=== PATIENT | female | born 1990 | race Caucasian/White ===

== ENCOUNTER 2022-05-19 19:08 | Inpatient (IN) ==
[2022-05-19] MEDS ORDERED: OXYTOCIN 30 UNITS/500 ML BAG IV PRN ×2 (19:57→21:57)
[2022-05-19] MEDS ORDERED: PENICILLIN G POTASSIUM 6 MU in DEXTROSE 5% 250 ML IV STA (20:00)
[2022-05-19 20:19] LABS: Hematocrit (blood only) 41.1 % (34.1-44.9); Hemoglobin 14.2 g/dl (12.0-16.0); Mean Corpuscular Hemoglobin 31.4 pg (25.0-34.0); Mean Corpuscular Hgb Conc 34.5 g/dL (32.0-36.0); Mean Corpuscular Volume 90.9 fL (80.0-100.0); Mean Platelet Volume 11.8 fL (9.4-12.3); Platelet Count 169 K/uL (130-400); RDW Coefficient of Variation 12.4 % (11.5-14.5); RDW Standard Deviation 41.1 fL (36.4-46.3); Red Blood Count 4.52 M/uL (3.93-5.22); White Blood Count 10.51 K/ul (4.8-10.8)
[2022-05-19] MEDS: LACTATED RINGER'S 1,000 ML IV PRN (20:42)
--- NOTE | 2022-05-19 21:53 | History & Physical Report ---
Date of Service May 19, 2022 Assessment & Plan (1) Encounter for supervision of normal intrauterine in primigravida, antepartum: Plan: Thuy is a 32-year-old at 39 weeks 6 days gestational age with spontaneous rupture of membranes not in labor. Patient is having regular contractions but does not feel them. At time of discussion patient had been ruptured approximately 6 hours and discussed the recommendation to start oxytocin as labor has not ensued despite being ruptured for 6+ hours. Discussed risk of infection and increased risk of due to prolonged labor with expectant management. Patient was agreeable to start oxytocin. 1. Fetus: Cat 1 2. Labor: PROM. Per above 3. GBS positive: PCN 4. Vitals: Stable (2) Group beta Strep positive: Admission and Anticipated Discharge Date Admission Date: May 19, 2022 History of Present Illness Primary Care Provider: NO PCP Selene is a 32-year-old currently at 39 weeks 6 days gestational age presents with leakage of fluid. Patient was noted be grossly ruptured on exam. Patient reporting good movement. Patient denying vaginal bleeding or notable contractions. uncomplicated to date. patient reports leakage of fluid around 3:30 or 4:00 this afternoon. Allergies Allergy/AdvReac Type Severity Reaction Status Date / Time No Known Allergies Allergy Verified 05/19/22 19:30 Home Medications Medication Instructions Recorded Confirmed Type calcium carbonate 600 mg calcium 600 mg PO DAILY 10/05/21 05/19/22 History (1,500 mg) tablet prenat.vits,albaro,yod-uqfe-gplpi 1 tab PO DAILY 10/05/21 05/19/22 History pyridoxine (vitamin B6) 100 mg 100 mg PO QID 10/05/21 05/19/22 History tablet doxylamine succinate 25 mg tablet 25 mg PO HS PRN sleep 05/19/22 05/19/22 History (Unisom (doxylamine)) Patient History Medical History Benign cyst of breast Breast lump Chicken pox H/O HIDA scan Heart burn Normal endoscopy Surgical History [place] teeth extracted Family History Aunt Ovarian cancer Maternal Great Aunt Cystic fibrosis Mother Melanoma Hypertension Endometriosis Grandfather (Paternal) Diabetes Grandmother (Maternal) Twin Grandmother was a Faternal twin at Father High cholesterol Cancer Testicular Grandmother (Paternal) Lung cancer Denies family history of Breast cancer Colorectal cancer Social History (Updated 10/09/21 @ 12:31 by Lyudmila LEDESMA RN) Smoking Status: Never smoker Hx Alcohol Use: No Hx Substance Use: No Preferred Language: Puerto Rican Communication Ability: Effective Prosthetics Technician Required: No Beliefs That Will Affect Care: None marital status: marital status details: Tio Davidson (34) [phone] Current Living Situation: Spouse Current Living Situation Comment: house with current occupational status: employed 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 Other Information That Helps Us Care for You: No Feels Safe at Home: Yes Safety Concerns: Feels Safe At This Time Assistive Devices: Glasses Physical Exam Genitourinary: normal external appearance Manual OB Exam: + cervical dilation 1 cm, + cervical effacement 50%, + station high and + amniotic fluid clear OB Exam Monitor Tracing: + external FHT monitor used, + external uterine monitor used, + category I and + normal FHT variability; no early decelerations present, no late decelerations present and no variable decelerations Exam per nurse Results & Data ([facility]) Vital Signs (Past 12 Hours) Vital Signs Temp Pulse Resp BP O2 Del Method 05/19/22 19:34 36.3 C L 18 Room Air 05/19/22 21:00 18 05/19/22 21:00 36.7 C 18 05/19/22 19:22 36.3 C L 74 18 131/71 Coding Level of Care Code None Diagnoses Encounter for supervision of normal intrauterine in primigravida, antepartum Z34.00 Group beta Strep positive B95.1
[2022-05-20] MEDS: PENICILLIN G POTASSIUM 3 MU in DEXTROSE 5% 100 ML IV PRN ×3 (00:45→09:06)
[2022-05-20] MEDS ORDERED: ePHEDrine sulfate 50 MG/ML AMP ONE (07:07)
[2022-05-20] MEDS ORDERED: fentaNYL citrate 100 MCG/2 ML VIAL ONE (07:08)
[2022-05-20] MEDS ORDERED: BUPIVACAINE 0.25% 30 ML VIAL ONE (07:08)
[2022-05-20] MEDS ORDERED: LIDOCAINE 2%/EPINEPHRINE 1:200,000 20 ML SDV ONE (07:08)
[2022-05-20] MEDS ORDERED: SODIUM CHLORIDE 0.9% INJ 10 ML VIAL ONE (07:08)
[2022-05-20] MEDS ORDERED: fentaNYL 2MCG/ML ROPIVACAINE 1.25MG/ML 100 ML BAG EPI ONE (07:09)
--- NOTE | 2022-05-20 08:10 | Anesthesiology Consultation ---
Date of Service May 20, 2022 Assessment & Plan (1) Encounter for pre-operative examination: History Height/Weight Height: 5 ft 4 in Weight: 67.585 kg Allergies Allergy/AdvReac Type Severity Reaction Status Date / Time No Known Allergies Allergy Verified 05/19/22 19:30 Medications Home Medications Medication Instructions Recorded Confirmed Last Taken calcium carbonate 600 mg calcium 600 mg PO DAILY 10/05/21 05/19/22 Unknown (1,500 mg) tablet prenat.vits,albaro,csv-dccp-ipawu 1 tab PO DAILY 10/05/21 05/19/22 05/19/22 pyridoxine (vitamin B6) 100 mg 100 mg PO QID 10/05/21 05/19/22 Unknown tablet doxylamine succinate 25 mg tablet 25 mg PO HS PRN sleep 05/19/22 05/19/22 05/18/22 21:00 (Unisom (doxylamine)) Active Medications Generic Name Dose Route Start Last Admin Trade Name Freq PRN Reason Stop Dose Admin Lactated Ringer's 1,000 mls @ 125 mls/hr 05/19/22 19:57 05/20/22 00:52 Lr IV 05/21/22 19:56 125 mls/hr .Q8H PRN Infusion L&D Protocol Protocol Penicillin G Potassium 3 mu/ 106 mls @ 100 mls/hr 05/19/22 22:57 05/20/22 05:00 Dextrose IV 05/29/22 22:56 100 mls/hr Q4H PRN Administration GBS(+) Until Delivery Oxytocin 30 units in 500 mls @ 8 mls/hr 05/19/22 21:57 05/20/22 03:30 Pitocin IV 05/21/22 21:56 0.48 units/hr .Q24H PRN 8 mls/hr Labor Induction/Augmentation Titration Protocol 0.48 UNITS/HR NPO Date Last Intake of Fluids: 05/19/22 Time Last Intake of Fluids: 07:00 Last Intake of Fluids Comment: Water Date Last Intake of Solids: 05/19/22 Time Last Intake of Solids: 18:00 Past Medical History Medical History (Updated 05/20/22 @ 08:10 by Sophie Lemus MD) GERD (gastroesophageal reflux disease) RAIMUNDO (stress urinary incontinence, female) Exercise / Class Metabolic Activity II 4-5 Yardwork/Stairs/Walk up hill Past Family History Family History Aunt Ovarian cancer Maternal Great Aunt Cystic fibrosis Mother Melanoma Hypertension Endometriosis Grandfather (Paternal) Diabetes Grandmother (Maternal) Twin Grandmother was a Faternal twin at Father High cholesterol Cancer Testicular Grandmother (Paternal) Lung cancer Denies family history of Breast cancer Colorectal cancer Past Surgical History Surgical History [place] teeth extracted Past Anesthesia History No Hx of Anesthesia Complications and No Family Hx of Anesthesia Complications History of PONV No Hx of PONV Social History Smoking Status: Never smoker Hx Alcohol Use: No Hx Substance Use: No Physical Exam Vital Signs Last Vital Signs Temp 36.9 C 05/20/22 05:00 Pulse 82 05/20/22 07:30 Resp 18 05/20/22 07:14 BP 119/68 05/20/22 07:14 Pulse Ox 95 05/20/22 07:30 O2 Del Method 05/19/22 19:34 Testing Laboratory Results 05/19/22 20:12
[2022-05-20] MEDS ORDERED: NALOXONE HCL 1 MG in SODIUM CHLORIDE 0.9% 1000ML 1,000 ML IV PRN (08:32)
[2022-05-20] MEDS ORDERED: fentaNYL 2MCG/ML ROPIVACAINE 1.25MG/ML 100 ML BAG EPI PRN (08:32)
[2022-05-20] MEDS ORDERED: ePHEDrine sulfate 50 MG/ML AMP IV PRN (08:32)
[2022-05-20] MEDS ORDERED: ONDANSETRON INJ 2 MG/ML 2 ML VIAL IV PRN (08:32)
[2022-05-20] MEDS ORDERED: NALBUPHINE HCL INJ 10 MG/ML AMP IV PRN (08:32)
[2022-05-20] MEDS ORDERED: NALOXONE HCL 0.4 MG/1 ML VIAL/CARP IV PRN (08:32)
[2022-05-20] MEDS ORDERED: diphenhydrAMINE 50 MG/ML VIAL IV PRN (08:32)
[2022-05-20] MEDS: LACTATED RINGER'S 1,000 ML IV PRN (08:42)
[2022-05-20] MEDS ORDERED: HYDROCORTISONE ACETATE 25 MG SUPP PR PRN (13:18)
[2022-05-20] MEDS ORDERED: DIPHTHERIA/TETANUS/PERTUSSIS 0.5 ML SYR/VIAL IM ONE (13:18)
[2022-05-20] MEDS ORDERED: OXYTOCIN 30 UNITS/500 ML BAG IV PRN (13:18)
[2022-05-20] MEDS ORDERED: ACETAMINOPHEN 325 MG TAB PO PRN (13:18)
[2022-05-20] MEDS ORDERED: BENZOCAINE 20% AER SPR 82.5 GM CAN EXT PRN (13:18)
[2022-05-20] MEDS ORDERED: bisacodyL 10 MG SUPP PR PRN (13:18)
--- NOTE | 2022-05-20 14:27 | Anesthesia Procedure Note ---
Date of Service May 20, 2022 Anesthesia Post Epidural Note Vital Signs Vital Signs: Temp Pulse Resp BP Pulse Ox O2 Del Method 36.5 C 83 16 111/64 98 05/20/22 10:57 05/20/22 14:19 05/20/22 14:15 05/20/22 14:19 05/20/22 12:55 05/19/22 19:34 Pain Intensity Bilateral Lower Abdomen: Pain Intensity: 0 Perineal: Pain Intensity: 2 Notes Mental Status: alert / awake / arousable and participated in evaluation Patient Amnestic to Procedure: Yes Nausea / Vomiting: adequately controlled Pain: adequately controlled Airway Patency, RR, SpO2: stable & adequate BP & HR: stable & adequate Hydration State: stable & adequate Neuraxial Anesthesia: was administered and sensory block resolved Epidural: Removed without complications
--- NOTE | 2022-05-20 15:51 | Delivery Summary ---
DATE OF SERVICE: 05/20/2022 PROCEDURE: Normal spontaneous vaginal delivery with second-degree perineal laceration and bilateral labial laceration repair. SURGEON: Van Peterson MD. PREOPERATIVE DIAGNOSES: 1. Single intrauterine at 40 weeks 0 days gestational age. 2. Spontaneous rupture of membranes. 3. GBS positive. POSTOPERATIVE DIAGNOSES: 1. Single intrauterine at 40 weeks 0 days gestational age. 2. Spontaneous rupture of membranes. 3. GBS positive. 4. Status post procedure. ESTIMATED BLOOD LOSS: 300 mL DRAINS: Straight cath at the completion of the case. URINE OUTPUT: Per straight cath. COMPLICATIONS: None. FINDINGS: Viable female with weight pending and Apgars of 9 and 10 at one and five minutes re spectively. INDICATIONS: The patient is a 32-year-old G1, P0, admitted at 39 weeks 6 days gestational age with s pontaneous rupture of membranes. After approximately 8-9 hours after rupture of membranes. The shannan ent was noted to have no significant cervical change and was not having any painful contractions. Th e patient was agreeable to start on oxytocin which was started per regular protocol. The patient pro gressed in labor, received an epidural at approximately 5-6 cm dilation. She continued to progress i n labor to complete-complete, +2 station, pushed over intact perineum for delivery. DESCRIPTION OF PROCEDURE: The patient progressed to 10 cm dilated, 100% effaced, positive 2 station, pushed over intact perineum with epidural anesthesia and delivered a viable female , weight an d Apgars as noted above. Head of the delivered in ASCENCION position, restituted to right transver se. No nuchal cord was noted. Body and shoulders quickly followed. was noted to be vigorou s soon after delivery and a 3 to 4 minutes delayed cord clamping was initiated per patient request. The cord was then double clamped and cut. remained on the maternal abdomen. Cord blood was obtained. Attention was then turned to delivery of the placenta, which was delivered intact, 3-vesse l cord, gentle cord traction. On inspection of the perineum, vagina, cervix, there was noted to be a second-degree perineal laceration and bilateral labial lacerations. The perineal laceration, which was repaired with 3-0 Vicryl in a traditional crown stitch. Bilateral labial lacerations were repair ed with 3-0 Vicryl in a continuous running stitch. Needle, sponge, and instrument counts were correc t at the completion of the case. Both mother and stable in the immediate post-delivery perio d. Job ID: [id number]
[2022-05-20] MEDS: IBUPROFEN 600 MG TAB PO PRN (19:37)
[2022-05-20] MEDS: DOCUSATE SODIUM 100 MG CAP PO SCH (19:37)
[2022-05-21] MEDS: IBUPROFEN 600 MG TAB PO PRN ×4 (00:23→21:43)
--- NOTE | 2022-05-21 06:45 | Obstetrical Progress Note ---
Date of Service <Gisel Alejandre DO - Last Filed: 05/21/22 07:18> May 21, 2022 Assessment & Plan <Gisel Alejandre DO - Last Filed: 05/21/22 07:18> (1) Encounter for supervision of normal intrauterine in primigravida, antepartum: (2) Group beta Strep positive: Plan s/p PPD 1: -Vital signs reviewed and WNL, Tmax at 36.9 -Hemoglobin reviewed, 14.2 (05/19) -A+, GBS+, rubella immune -Patient is doing well clinically -Encourage ambulation, monitor and treat pain with motrin PRN, monitor lochia -Continue regular diet -Encourage breast feeding <Van Peterson MD - Last Filed: 05/21/22 08:15> (1) Encounter for supervision of normal intrauterine in primigravida, antepartum: (2) Group beta Strep positive: Subjective <Gisel Alejandre DO - Last Filed: 05/21/22 07:18> Selene is a 32 y/o female who is PPD #1 following at 40 0/7 weeks. Her was complicated by GBS+. Patient was seen and examined at bedside. She reports feeling well overall this morning. States she has vaginal pain, especially with sitting and rates it a 3/10 pain. Also notes some pain at the site of her epidural. States she has been taking motrin to help with the pain. Denies any burning with urination, but does admit to some increased urinary frequency. Admits to some nausea yesterday but has tolerated food since without issue. Has been able to ambulate some. Endorses passing gas but no bowel movements yet. Has some persistent lochia with some improvement this morning, denies any clots. Currently breast feeding. Constitutional: no fever, no chills or no sweats Respiratory: no cough, no dyspnea or no wheezing Cardiovascular: no chest pain, no palpitations or no calf pain Breast: no breast pain Genitourinary (female): no dysuria Neurologic: no headache(s) Physical Exam <Gisel Alejandre DO - Last Filed: 05/21/22 07:18> Constitutional WD/WN, vitals as above no acute distress Respiratory no respiratory distress Auscultation: lungs clear to auscultation bilaterally; no rales, no rhonchi and no wheezes Cardiovascular RRR, no murmur, no edema Extremities: no calf tenderness and no edema Negative Lorena's sign bilaterally. Gastrointestinal (Abdomen) Inspection/Auscultation: normal bowel sounds Genitourinary Uterine fundus firm, palpable below the umbilicus. Results & Data ([facility]) <Gisel Alejandre DO - Last Filed: 05/21/22 07:18> Vital Signs (Past 12 Hours) Vital Signs Temp Pulse Resp BP Pulse Ox O2 Del Method 05/21/22 04:30 36.5 C 70 18 128/67 98 Room Air 05/21/22 00:05 36.6 C 73 18 104/68 97 Room Air 05/20/22 19:38 36.8 C 75 16 121/74 99 Room Air <Van Peterson MD - Last Filed: 05/21/22 08:15> Co-Signing Physician Notes Patient is seen and evaluated with resident and agree with the above findings and plan. Patient doing well. expecting routine care today Resident Activity Tracking <Gisel Alejandre DO - Last Filed: 05/21/22 07:18> Resident Involvement: Resident Care Provided Care Provided: OB Delivery
[2022-05-21] MEDS: DOCUSATE SODIUM 100 MG CAP PO SCH ×2 (09:21→21:43)
[2022-05-21] MEDS: PRENATAL VITAMIN 1 TAB PO SCH (09:21)
[2022-05-21 10:32] LABS: Hematocrit (blood only) 33.9 % (34.1-44.9); Hemoglobin 11.6 g/dl (12.0-16.0); Mean Corpuscular Hemoglobin 31.8 pg (25.0-34.0); Mean Corpuscular Hgb Conc 34.2 g/dL (32.0-36.0); Mean Corpuscular Volume 92.9 fL (80.0-100.0); Platelet Count 135 K/uL (130-400); RDW Coefficient of Variation 12.7 % (11.5-14.5); RDW Standard Deviation 43.5 fL (36.4-46.3); Red Blood Count 3.65 M/uL (3.93-5.22); White Blood Count 10.57 K/ul (4.8-10.8)
[2022-05-21] MEDS ORDERED: bisacodyL 5 MG TABEC PO SCH (20:00)
--- NOTE | 2022-05-22 06:04 | Obstetrical Progress Note ---
Date of Service <Gisel Alejandre DO - Last Filed: 05/22/22 07:12> May 22, 2022 Assessment & Plan <Gisel Alejandre DO - Last Filed: 05/22/22 07:12> (1) Encounter for supervision of normal intrauterine in primigravida, antepartum: (2) Group beta Strep positive: Plan s/p PPD 2: -Vital signs reviewed and WNL, Tmax at 36.9 -Hemoglobin reviewed, 14.2 (05/19), 11.6 (05/21) -A+, GBS+, rubella immune -Patient is doing well clinically -Encourage ambulation, monitor and treat pain with motrin PRN, monitor lochia -Continue regular diet -Encourage breast feeding -Discussed discharge plan with patient *Will have patient call to schedule 1 week follow up in office in addition to [address] Peterson* <Joelle Toure MD, FACOG - Last Filed: 05/22/22 07:38> (1) Encounter for supervision of normal intrauterine in primigravida, antepartum: (2) Group beta Strep positive: Subjective <Gisel Alejandre DO - Last Filed: 05/22/22 07:12> Selene is a 32 y.o. who is PPD 2 after at 40 weeks. She had a 2nd degree perineal laceration and bilateral labial lacerations from delivery. Patient was seen and examined at bedside. Patient states that she is hungry today, has been eating and had no nausea or vomiting.. States she has a lot of breast pain with and is worried that she is not producing enough for her baby. Has been ambulating without issue, has been voiding without issue. Has passed gas and had a bowel movement. Admits that she has not had much sleep since delivery. Discussed having a 1 week follow up appointment after discharge to check in on how things are going. Constitutional: no fever, no chills or no sweats Respiratory: no cough, no dyspnea or no wheezing Cardiovascular: no chest pain, no palpitations or no calf pain Breast: no breast pain Genitourinary (female): no dysuria Neurologic: no headache(s) Physical Exam <Gisel Alejandre DO - Last Filed: 05/22/22 07:12> Constitutional WD/WN, vitals as above no acute distress Respiratory no respiratory distress Auscultation: lungs clear to auscultation bilaterally; no rales, no rhonchi and no wheezes Cardiovascular RRR, no murmur, no edema Extremities: no calf tenderness and no edema Gastrointestinal (Abdomen) Inspection/Auscultation: normal bowel sounds Genitourinary Uterine fundus firm, palpable below umbilicus. Results & Data ([facility]) <Gisel Alejandre DO - Last Filed: 05/22/22 07:12> Vital Signs (Past 12 Hours) Vital Signs Temp Pulse Resp BP Pulse Ox O2 Del Method 05/22/22 00:10 36.8 C 71 18 117/75 98 Room Air 05/21/22 19:40 36.5 C 79 20 114/69 97 Room Air <Joelle Toure MD, FACOG - Last Filed: 05/22/22 07:38> Co-Signing Physician Notes Resident Physician Supervision Note: I interviewed and examined the patient. Discussed with Dr. Alejandre and agree with findings and plan as documented in the note. Any exceptions or clarifications are listed here: Doing well today. Patient is tearful today. Notes she loves her baby so much and concerned that she will take good care of her. Having alot of issues with nipples, concern about supply, etc. Patient has communicated with Mira Hudson and has f/u with her. Patient also notes poor sleep. Discussed this as well. Patient is desirous of going home. Instructions given. Will have a one week f/u for concern for depression--s/s reviewed and encouraged to call if need be. All this was communicated with the fob in the room and participating. Documented By: Joelle Toure MD, FACOG
[2022-05-22] MEDS: DOCUSATE SODIUM 100 MG CAP PO SCH (07:22)
[2022-05-22] MEDS: IBUPROFEN 600 MG TAB PO PRN (07:22)
[2022-05-22] MEDS: PRENATAL VITAMIN 1 TAB PO SCH (07:22)
[2022-05-22 07:29] LABS: Hematocrit (blood only) 36.3 % (34.1-44.9); Hemoglobin 12.2 g/dl (12.0-16.0)
== END 2022-05-22 11:20 | disposition home or self-care (01) | DRG 807 ==
LOC: OPB 19:08 → 4S1 19:09 → 4E2 05-20 16:00
DX: Z37.0 Single live birth; O70.0 First degree perineal laceration during delivery; Z3A.39 39 weeks gestation of pregnancy; O99.824 Streptococcus B carrier state complicating childbirth; O70.1 Second degree perineal laceration during delivery

== ENCOUNTER 2024-06-07 05:42 | Inpatient (IN) ==
[2024-06-07] MEDS ORDERED: OXYTOCIN 30 UNITS/NSS 30 UNITS/500 ML BAG IV PRN ×2 (06:50)
[2024-06-07] MEDS ORDERED: LIDOCAINE 1% LOCAL 20 ML VIAL INFIL PRN (06:50)
[2024-06-07] MEDS ORDERED: LACTATED RINGER'S 1,000 ML IV PRN (06:50)
[2024-06-07 07:18] LABS: Hematocrit (blood only) 39.5 % (37.0-47.0); Hemoglobin 13.5 g/dl (12.0-16.0); Mean Corpuscular Hemoglobin 31.1 pg (25.0-34.0); Mean Corpuscular Hgb Conc 34.2 g/dL (32.0-36.0); Mean Platelet Volume 11.9 fL (9.4-12.4); Platelet Count 164 K/uL (130-400); RDW Coefficient of Variation 13.1 % (11.5-14.5); RDW Standard Deviation 43.4 fL (36.4-46.3); Red Blood Count 4.34 M/uL (4.20-5.40); White Blood Count 8.64 K/ul (4.8-10.8)
[2024-06-07] MEDS: miSOPROStoL 50 MCG TAB PO ONE ×2 (07:47→13:15)
--- NOTE | 2024-06-07 09:32 | History & Physical Report ---
Date of Service June 07, 2024 Assessment & Plan (1) Supervision of normal intrauterine in multigravida: Plan: Patient presented with ruptured membranes this happened early in the morning she waited at home for 6 hours at her preference and arrived in labor and delivery her cervix was assessed and she was 1 to 2 cm 50% effaced group B strep negative I advised augmentation I offered oxytocin or Cytotec patient chose Cytotec discussed reasons for active management of labor and including reduction of infection patient agreeable Admission and Anticipated Discharge Date Admission Date: June 07, 2024 History of Present Illness Primary Care Provider: NO PCP Visit ESHA Calculator Estimated Delivery Date Method Current WG Current Estimate 06/06/24 LMP (Certain) 39w 5d LMP: 08/31/23 : 2 Full term: 1 Premature: 0 Total Number of Induced Abortions: 0 Total Number of Spontaneous Abortions: 0 Ectopics: 0 Multiple births: 0 Number of Living Children: 1 Allergies Allergy/AdvReac Type Severity Reaction Status Date / Time No Known Allergies Allergy Verified 06/04/24 09:35 Home Medications Medication Instructions Recorded Confirmed Type prenat.vits,albaro,enw-ebyx-xotap 1 tab PO DAILY 10/05/21 06/07/24 History calcium acetate 325 tab PO DAILY 07/12/23 06/04/24 History magnesium chloride PO 07/12/23 06/04/24 History breast pump #1 ea 05/05/24 06/04/24 Rx Patient History Medical History (Updated 05/21/24 @ 15:13 by Brittny Cabral MD) Group beta Strep positive Surgical History [place] teeth extracted Family History Aunt Ovarian cancer Maternal Great Aunt Cystic fibrosis Mother Melanoma Hypertension Endometriosis Grandfather (Paternal) Diabetes Grandmother (Maternal) Twin Grandmother was a Faternal twin at Father High cholesterol Cancer Testicular Grandmother (Paternal) Lung cancer Denies family history of Breast cancer Colorectal cancer Social History (Updated 10/22/23 @ 10:55 by Roxy Thomas) Smoking Status: Never smoker Do You Dip or Chew Tobacco: No; Hx Alcohol Use: No Hx Substance Use: No Preferred Language: Yemeni Communication Ability: Effective Commuter Train Operator Required: No Beliefs That Will Affect Care: None marital status: marital status details: Tio Davidson (36) [phone] Current Living Situation: Spouse and Family Current Living Situation Comment: house with and daughter, 1 dog. 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 Other Information That Helps Us Care for You: No Feels Safe at Home: Yes Safety Concerns: Feels Safe At This Time Assistive Devices: None Physical Exam Constitutional: WD/WN, vitals as above well developed and well nourished Respiratory: normal respiratory effort, lungs clear to auscultation normal respiratory effort Cardiovascular: RRR, no murmur, no edema Gastrointestinal (Abdomen): normal bowel sounds, soft, nontender, no hepatosplenomegaly Results & Data Vital Signs (Past 12 Hours) Vital Signs Temp Pulse Resp BP 06/07/24 07:30 20 06/07/24 07:30 97.9 F 06/07/24 07:28 71 110/66 06/07/24 06:04 18 06/07/24 06:00 75 124/70 Coding Level of Care Code None Diagnoses Supervision of normal intrauterine in multigravida Z34.80
[2024-06-07] MEDS ORDERED: ACETAMINOPHEN 325 MG TAB PO PRN ×2 (15:47→17:47)
--- NOTE | 2024-06-07 16:38 | Labor Progress Brief Note ---
Date of Service June 07, 2024 Second Cytotec dose was given patient is now 4 to 5 cm 90% effaced -1 we will see how frequent the contractions are on the monitor may need a small amount of Pitocin but certainly cervical changes occurring heart rate category 1 Assessment & Plan Admission and Anticipated Discharge Date Admission Date: June 07, 2024 Results & Data Vital Signs (Past 12 Hours) Vital Signs Temp Pulse Resp BP 06/07/24 15:43 20 06/07/24 15:43 06/07/24 15:35 97.7 F 06/07/24 15:15 73 114/72 06/07/24 14:21 06/07/24 14:21 06/07/24 13:51 06/07/24 13:51 06/07/24 13:30 06/07/24 13:30 97.9 F 06/07/24 11:15 97.9 F 06/07/24 10:54 78 111/56 L 06/07/24 10:53 06/07/24 10:53 06/07/24 10:08 06/07/24 10:08 06/07/24 09:45 97.7 F 06/07/24 08:30 06/07/24 08:30 06/07/24 08:00 06/07/24 08:00 06/07/24 07:30 06/07/24 07:30 06/07/24 07:30 06/07/24 07:30 97.9 F 06/07/24 07:28 71 110/66 06/07/24 06:04 06/07/24 06:00 75 124/70 Coding Level of Care Code None
[2024-06-07] MEDS: OXYTOCIN 30 UNITS/NSS 30 UNITS/500 ML BAG IV PRN (17:30)
--- NOTE | 2024-06-07 17:38 | Delivery Summary ---
Vaginal Delivery Summary Date of Service June 07, 2024 Vaginal Delivery Summary and 2nd Degree LAC Spontaneous vaginal delivery the patient arrived with rupture of membranes she stayed at home for 6 hours and then Cytotec p.o. was accepted we had discussed oxytocin a second dose of p.o. Cytotec was given and then she entered a full labor pattern she progressed to fully dilated delivered a baby in occiput anterior position on 1 push after delivery of the head there was no nuchal cord fluid was clear gentle traction the baby no excessive force live vigorous female cord clamped after 1 minute cord blood obtained placenta removed with traction small second-degree tear repaired first by injecting with local anesthetic and then repairing with 3-0 Vicryl sponge and instrument counts correct QBL was 100ml MNPG Vaginal Delivery Charge Delivery Type Details: and 2nd Degree LAC
[2024-06-07] MEDS ORDERED: HYDROCORTISONE ACETATE 25 MG SUPP PR PRN (17:47)
[2024-06-07] MEDS ORDERED: oxyCODONE/ACETAMINOPHEN 5mg/325mg TAB PO PRN (17:47)
[2024-06-07] MEDS ORDERED: bisacodyL 10 MG SUPP PR PRN (17:47)
[2024-06-07] MEDS ORDERED: BENZOCAINE 20% SPRY 85 APPLN/85 GM CAN EXT PRN (17:47)
[2024-06-07] MEDS: BENZOCAINE 20% SPRY 85 APPLN/85 GM CAN EXT ONE (17:48)
[2024-06-07] MEDS: IBUPROFEN 600 MG TAB PO PRN (17:54)
[2024-06-07] MEDS: DIPHTHER/TETAN/PERTUS Vaccine (Tdap, Adol/Adult) 0.5mL IM ONE (18:41)
[2024-06-07] MEDS: DOCUSATE SODIUM 100 MG CAP PO SCH (20:04)
[2024-06-07 22:02] VITALS: O2SAT 98
[2024-06-08 07:04] LABS: Hematocrit (blood only) 36.6 % (37.0-47.0); Hemoglobin 12.8 g/dl (12.0-16.0); Mean Corpuscular Hemoglobin 31.4 pg (25.0-34.0); Mean Corpuscular Volume 89.7 fL (80.0-100.0); Platelet Count 147 K/uL (130-400); RDW Coefficient of Variation 12.9 % (11.5-14.5); RDW Standard Deviation 42.9 fL (36.4-46.3); Red Blood Count 4.08 M/uL (4.20-5.40)
--- NOTE | 2024-06-08 07:51 | Obstetrical Progress Note ---
Date of Service June 08, 2024 Assessment & Plan (1) Low lying placenta without hemorrhage, antepartum: day #1 the patient is doing well no extremity pain minimal bleeding she wishes discharge home later today Subjective Ambulation: ambulating normally Voiding: no voiding problems Passing Gas:: Yes Diet Tolerance:: regular diet Lochia:: Small Feeding Type:: breast feeding Physical Exam Constitutional WD/WN, vitals as above well developed and well nourished Respiratory normal respiratory effort, lungs clear to auscultation normal respiratory effort Cardiovascular RRR, no murmur, no edema Gastrointestinal (Abdomen) normal bowel sounds, soft, nontender, no hepatosplenomegaly Results & Data Vital Signs (Past 12 Hours) Vital Signs Temp Pulse Resp BP Pulse Ox O2 Del Method 06/08/24 05:20 97.7 F 80 16 108/71 98 Room Air 06/07/24 22:45 98.1 F 71 16 102/65 98 Room Air 06/07/24 20:35 97.9 F 85 16 117/71 98 Room Air
[2024-06-08] MEDS: PRENATAL VITAMIN 1 TAB PO SCH (08:50)
[2024-06-08 11:00] VITALS: RESP 18
[2024-06-08 14:00] VITALS: BP 104/67; PULSE 73; TEMP 97.9
[2024-06-08] MEDS ORDERED: bisacodyL 5 MG TABEC PO SCH (20:00)
== END 2024-06-08 18:25 | disposition home or self-care (01) | DRG 807 ==
LOC: OPB 05:42 → 4S1 05:48 → 4E2 20:38